=== PATIENT | female | born 1985 | race African-American/Black ===

== ENCOUNTER 2025-03-27 17:02 | Emergency (ER) | payer MEDICAID ==
[~2025-03-27] VITALS: Ht 170.2 cm; Wt 112.0 kg
[2025-03-27 17:06] VITALS: O2SAT 96
[2025-03-27 17:07] VITALS: BP 139/92; PULSE 63; RESP 16; TEMP 37.1; O2SAT 98
[2025-03-27 18:40] LABS: BASOPHILS % 0.6 % (0.0-2.0); EOSINOPHILS % 3.6 % (0.0-5.0); HEMATOCRIT. 43.1 % (36.0-48.0); HEMOGLOBIN. 14.2 g/dL (12.0-16.0); LYMPHOCYTES % 37.7 % (20.0-50.0); MEAN CORPUSCULAR HEMOGLOBIN 29.5 pg (28.0-32.0); MEAN CORPUSCULAR HGB CONC 32.9 g/dL (31.0-37.0); MEAN CORPUSCULAR VOLUME 89.8 fL (81.0-99.0); MEAN PLATELET VOLUME 8.8 fl (7.4-10.4); MONOCYTES % 8.6 % (2.0-8.0); NEUTROPHILS % 49.5 % (40.0-76.0); PLATELET 391 x1000/uL (130-400); RED CELL DISTRIBUTION WIDTH 14.6 % (11.6-14.6); WHITE BLOOD COUNT 7.7 x1000/uL (4.5-11.0)
[2025-03-27 18:45] LABS: CHLORIDE 105 mEq/L (98-107); POTASSIUM 4.1 mEq/L (3.5-5.1); SODIUM 142 mEq/L (136-145)
[2025-03-27 18:46] LABS: CALCIUM 10.1 mg/dL (8.7-10.4); CARBON DIOXIDE 24 mEq/L (21-32)
[2025-03-27 18:51] LABS: CREATININE 0.8 mg/dL (0.6-1.0); GLUCOSE 101 mg/dL (70-105); UREA NITROGEN BLOOD 6 mg/dL (9-23)
[2025-03-27 18:53] LABS: ALANINE AMINOTRANSFERASE 14 IU/L (10-49); ALBUMIN 4.6 g/dL (3.2-4.8); ASPARTATE AMINOTRANSFERASE 15 IU/L (<34); BILIRUBIN DIRECT 0.1 mg/dL (<=3.0); BILIRUBIN TOTAL 0.4 mg/dL (0.1-1.0)
[2025-03-27 18:54] LABS: PROTEIN TOTAL 7.3 g/dL (6.0-8.3)
[2025-03-27] MEDS ORDERED: FAMOTIDINE 20MG/2ML VIAL IV ONE (19:00)
[2025-03-27] MEDS ORDERED: SODIUM CHLORIDE 0.9% 1,000 ML IV ONE (19:00)
[2025-03-27] MEDS ORDERED: ONDANSETRON HCL 4MG/2ML INJ IV ONE (19:00)
[2025-03-27 19:36] LABS: HCG SCREEN NEGATIVE
[2025-03-27] MEDS ORDERED: ONDA4TAB50 MT (22:07)
[2025-03-27] MEDS ORDERED: MAG355OR21 MT (22:07)
[2025-03-27] MEDS ORDERED: FAMO-135 MT (22:07)
== END 2025-03-27 22:00 | disposition left against medical advice (07) ==
LOC: ER 17:02 → CANBEDREQ 03-28 16:44
DX: R10.84 Generalized abdominal pain (principal); Z53.29 Procedure and treatment not carried out because of patient's decision for other reasons; Z79.899 Other long term (current) drug therapy
CPT/HCPCS: 99283; 80076; 80048; 84703; 83690; 85025; 36415; J7030